=== PATIENT | female | born 1975 | race Two or more races ===

== ENCOUNTER 2020-08-26 23:35 | Emergency (ER) | payer OTHER ==
[~2020-08-26] VITALS: Ht 165.1 cm; Wt 131.8 kg
[2020-08-27 00:12] VITALS: BP 148/88
[2020-08-27] MEDS ORDERED: FLUORESCEIN SODIUM 1 MG STRIP OD ONE (00:30)
[2020-08-27] MEDS ORDERED: PROPARACAINE HCL 0.5% 15 ML OPHTHALMIC SOLUTION OD ONE (00:30)
[2020-08-27] MEDS ORDERED: TOBRAMYCIN SULFATE 0.3% 5 ML OPHTHALMIC SOLUTION OS ONE (00:45)
== END 2020-08-27 00:53 | disposition home or self-care (01) ==
LOC: EMS 23:35
DX: H57.89 Other specified disorders of eye and adnexa (principal); I10 Essential (primary) hypertension; Z88.6 Allergy status to analgesic agent; Z88.5 Allergy status to narcotic agent; Z88.8 Allergy status to other drugs, medicaments and biological substances

== ENCOUNTER 2020-10-29 18:24 | Emergency (ER) | payer OTHER ==
[~2020-10-29] VITALS: Ht 177.8 cm; Wt 122.7 kg
[2020-10-29 18:29] VITALS: BP 147/85
[2020-10-29] MEDS ORDERED: IBUPROFEN 400 MG TABLET PO ONE (19:00)
== END 2020-10-29 19:35 | disposition home or self-care (01) ==
LOC: EMS 18:24
DX: S80.812A Abrasion, left lower leg, initial encounter (principal); I10 Essential (primary) hypertension; Z88.5 Allergy status to narcotic agent; Z88.8 Allergy status to other drugs, medicaments and biological substances; W19.XXXA Unspecified fall, initial encounter; Y93.89 Activity, other specified; Y92.89 Other specified places as the place of occurrence of the external cause; Y99.8 Other external cause status
CPT/HCPCS: Z7502

== ENCOUNTER 2020-11-25 03:44 | Emergency (ER) | payer OTHER ==
[~2020-11-25] VITALS: Ht 165.1 cm; Wt 131.8 kg
[2020-11-25] MEDS ORDERED: LOSA50TA37 PO (04:23)
[2020-11-25] MEDS ORDERED: AMLO-258 PO (04:23)
[2020-11-25 05:11] LABS: COVID AG,FIA SOURCE NASOPHARYNGEAL
[2020-11-25 05:35] LABS: ANION GAP 4 mmol/L (8-16); CALCIUM, TOTAL 8.5 mg/dL (8.8-10.5); CARBON DIOXIDE 29 mmol/L (22-29); CHLORIDE 107 mmol/L (98-107); CREATININE 0.72 mg/dL (0.60-1.30); GLOMERULAR FILTR. RATE CALC > 60 mL/min (>60); GLUCOSE,RANDOM 108 mg/dL (70-110); POTASSIUM 3.7 mmol/L (3.5-5.1); SODIUM SERUM 140 mmol/L (136-145); UREA NITROGEN, BLOOD 11 mg/dL (7-18)
[2020-11-25 05:35] LABS: APPEARANCE,URINE CLEAR (CLEAR); BILIRUBIN,URINE NEGATIVE (NEGATIVE); GLUCOSE, URINE (UA) NEGATIVE (NEGATIVE); KETONES,URINE NEGATIVE (NEGATIVE); LEUKOCYTE ESTERASE ,URINE NEGATIVE (NEGATIVE); NITRATE,URINE NEGATIVE (NEGATIVE); OCCULT BLOOD,URINE NEGATIVE (NEGATIVE); PH,URINE 5.5 (5.0-8.0); PROTEIN,URINE NEGATIVE (NEGATIVE)
[2020-11-25 05:37] LABS: BASOPHILS % (AUTO) 0.3 % (0.0-2.0); EOSINOPHILS % (AUTO) 3.3 % (1.0-6.0); HEMATOCRIT 38.1 % (36-46); HEMOGLOBIN 12.9 g/dL (12.0-16.0); LYMPHOCYTES % (AUTO) 17.7 % (22.0-44.0); MEAN CORPUSCULAR HGB CONC 33.9 G/dL (31.0-37.0); MEAN CORPUSCULAR VOLUME 95 fL (80-100); MONOCYTES # (AUTO) 0.6 K/uL (0.1-1.0); MONOCYTES % (AUTO) 10.7 % (2.0-9.0); NEUTROPHILS # (AUTO) 3.8 K/uL (1.8-7.7); PLATELET COUNT (AUTO) 187 K/uL (150-450); RED BLOOD CELL COUNT(AUTO) 4.03 MIL/uL (4.00-5.20)
[2020-11-25 05:41] LABS: ALANINE AMINOTRANSFERASE 69 U/L (12-78); ALBUMIN 3.5 g/dL (3.4-5.0); ALKALINE PHOSPHATASE 103 U/L (46-116); ASPARTATE AMINOTRANSFERASE 30 U/L (15-37); BILIRUBIN,TOTAL 0.3 mg/dL (0.1-1.0); LIPASE 23 U/L (73-393); TOTAL PROTEIN, SERUM 7.2 g/dL (6.4-8.2)
[2020-11-25 05:46] LABS: INFLUENZA TYPE A NEGATIVE FOR TYPE A (NEGATIVE); INFLUENZA TYPE B NEGATIVE FOR TYPE B (NEGATIVE)
[2020-11-25 06:14] VITALS: BP 135/77
[2020-11-25 06:23] LABS: BACTERIA,URINE None Seen /HPF (None Seen); RBC,URINE None Seen /HPF (0-2); SQUAMOUS EPITHELIAL CELL,UR Moderate /LPF (None Seen); WBC,URINE 0-2 /HPF (0-5)
== END 2020-11-25 06:38 | disposition home or self-care (01) ==
LOC: EMS 03:45
DX: R05 Cough (principal); R10.9 Unspecified abdominal pain; Z20.822 Contact with and (suspected) exposure to COVID-19
CPT/HCPCS: 36415; 80053; 81001; 83690; 84703; 85025; 87426; 87804; 99283; U0003

== ENCOUNTER 2021-11-08 20:45 | Emergency (ER) | payer OTHER ==
[~2021-11-08] VITALS: Ht 162.6 cm; Wt 155.4 kg
[~2021-11-08 20:45] MED LIST: AMLO-258 PO; LOSA50TA37 PO
[2021-11-08 22:39] VITALS: BP 185/93
[2021-11-08] MEDS ORDERED: LOSARTAN POTASSIUM 50 MG TABLET PO ONE (22:45)
[2021-11-08 23:30] LABS: COVID AG,FIA SOURCE NASOPHARYNGEAL
[2021-11-09 00:11] LABS: INFLUENZA TYPE A NEGATIVE FOR TYPE A (NEGATIVE); INFLUENZA TYPE B NEGATIVE FOR TYPE B (NEGATIVE)
== END 2021-11-09 01:41 | disposition home or self-care (01) ==
LOC: EMS 20:46
DX: U07.1 COVID-19 (principal); I10 Essential (primary) hypertension; Z76.0 Encounter for issue of repeat prescription; Z88.6 Allergy status to analgesic agent; Z88.5 Allergy status to narcotic agent
CPT/HCPCS: 87426; 87804; 99283; U0003

== ENCOUNTER 2022-07-23 17:28 | Emergency (ER) | payer OTHER ==
[~2022-07-23] VITALS: Ht 162.6 cm; Wt 141.4 kg
[~2022-07-23 17:28] MED LIST changes: +LOSA-382 PO; -LOSA50TA37 PO
[2022-07-23] MEDS ORDERED: ALBU8HFA IH (17:30)
[2022-07-23] MEDS ORDERED: BECL10.6 IH (17:30)
[2022-07-23] MEDS ORDERED: SEMA0.25 SQ (18:13)
[2022-07-23 19:17] VITALS: BP 148/72
[2022-07-23] MEDS ORDERED: ACET-2080 PO (19:53)
== END 2022-07-23 20:12 | disposition home or self-care (01) ==
LOC: EMS 17:29
DX: S92.532A Displaced fracture of distal phalanx of left lesser toe(s), initial encounter for closed fracture (principal); J45.909 Unspecified asthma, uncomplicated; I10 Essential (primary) hypertension; W18.40XA Slipping, tripping and stumbling without falling, unspecified, initial encounter; Y93.89 Activity, other specified; Y92.89 Other specified places as the place of occurrence of the external cause; Y99.8 Other external cause status
CPT/HCPCS: 99283

== ENCOUNTER 2023-01-24 19:28 | Emergency (ER) | payer OTHER ==
[~2023-01-24] VITALS: Ht 165.1 cm; Wt 140.9 kg
[~2023-01-24 19:28] MED LIST changes: +ACET-2080 PO; +ALBU8HFA IH; -AMLO-258 PO; +BECL10.6 IH; +SEMA0.25 SQ
[2023-01-24 20:09] LABS: BASOPHILS % (AUTO) 0.5 % (0.0-2.0); EOSINOPHILS % (AUTO) 2.3 % (1.0-6.0); HEMATOCRIT 43.5 % (36-46); HEMOGLOBIN 14.5 g/dL (12.0-16.0); LYMPHOCYTES # (AUTO) 1.3 K/uL (1.0-4.8); LYMPHOCYTES % (AUTO) 14.9 % (22.0-44.0); MEAN CORPUSCULAR HEMOGLOBIN 31.8 pg (26.0-34.0); MEAN CORPUSCULAR HGB CONC 33.4 G/dL (31.0-37.0); MEAN CORPUSCULAR VOLUME 95 fL (80-100); MONOCYTES # (AUTO) 0.4 K/uL (0.1-1.0); NEUTROPHILS # (AUTO) 6.6 K/uL (1.8-7.7); NEUTROPHILS % (AUTO) 77.3 % (40.0-70.0); PLATELET COUNT (AUTO) 211 K/uL (150-450); RED BLOOD CELL COUNT(AUTO) 4.57 MIL/uL (4.00-5.20); RED CELL DISTRIBUTION WIDTH 12.9 % (11.5-14.5)
[2023-01-24 20:19] LABS: ANION GAP 5 mmol/L (8-16); CALCIUM, TOTAL 9.1 mg/dL (8.8-10.5); CARBON DIOXIDE 32 mmol/L (22-29); CHLORIDE 105 mmol/L (98-107); CREATININE 0.84 mg/dL (0.60-1.30); GLOMERULAR FILTR. RATE CALC > 60 mL/min (>60); GLUCOSE,RANDOM 99 mg/dL (70-110); POTASSIUM 3.8 mmol/L (3.5-5.1); SODIUM SERUM 142 mmol/L (136-145); UREA NITROGEN, BLOOD 15 mg/dL (7-18)
[2023-01-24 20:25] LABS: INR 0.9 (0.9-1.1)
[2023-01-24] MEDS ORDERED: APIX2.5T PO (20:30)
[2023-01-24] MEDS ORDERED: METO25 PO (20:30)
[2023-01-24] MEDS ORDERED: LABE100T51 PO (20:30)
[2023-01-24 20:33] LABS: B-TYPE NATRIURETIC PEPTIDE 20 pg/mL (0-100)
[2023-01-24 20:44] LABS: ALANINE AMINOTRANSFERASE 97 U/L (12-78); ALKALINE PHOSPHATASE 110 U/L (46-116); ASPARTATE AMINOTRANSFERASE 38 U/L (15-37); BILIRUBIN,TOTAL 0.4 mg/dL (0.1-1.0); CREATINE KINASE, TOTAL ONLY 92 U/L (26-192); TOTAL PROTEIN, SERUM 7.5 g/dL (6.4-8.2)
[2023-01-24 21:25] LABS: COVID AG,FIA SOURCE NASAL SWAB
[2023-01-24 21:45] VITALS: BP 142/92
[2023-01-24 21:47] LABS: INFLUENZA TYPE A NEGATIVE FOR TYPE A (NEGATIVE); INFLUENZA TYPE B NEGATIVE FOR TYPE B (NEGATIVE)
[2023-01-24] MEDS ORDERED: AMOX250C4 PO (22:37)
== END 2023-01-24 23:00 | disposition home or self-care (01) ==
LOC: EMS 19:29
DX: J06.9 Acute upper respiratory infection, unspecified (principal); R07.89 Other chest pain; J45.909 Unspecified asthma, uncomplicated; I10 Essential (primary) hypertension; Z98.890 Other specified postprocedural states; Z20.822 Contact with and (suspected) exposure to COVID-19
CPT/HCPCS: 71045; 80053; 82550; 83880; 84484; 85025; 85610; 85730; 87804; 93005; 99285